=== PATIENT | female | born 1945 | race Caucasian/White ===

== ENCOUNTER 2024-08-15 08:19 | Emergency (ER) | payer OTHER, SELFPAY ==
--- NOTE | 2024-08-15 08:24 | ED_ITS ---
HPI - General Adult General Chief complaint: Dental/Oral Stated complaint: right side gum pain,swollen Time Seen by Provider: 08/15/24 08:50 Source: patient, RN notes reviewed and old records reviewed Mode of arrival: ambulatory Limitations: no limitations History of Present Illness HPI narrative: 79-year-old female presents to the [facility] with right gum pain and swelling. States the discomfort started on Monday. Has been swishing with salt water. Patient is a smoker Wears dentures. Onset (ago): day(s) (3) Related Data Home Medications ?Medication ?Instructions ?Recorded ?Confirmed ?Last Taken ?Type lisinopril 20 mg tablet 20 mg PO DAILY 08/15/24 08/15/24 Unknown History Allergies Allergy/AdvReac Type Severity Reaction Status Date / Time No Known Allergies Allergy Verified 08/15/24 08:57 Review of Systems Review of Systems: All systems reviewed & are unremarkable except as noted in HPI and below Constitutional: Constitutional: Reports no additional constitutional complaints ENT: Reports as per HPI Cardiovascular: Cardiovascular: Reports no additional cardiovascular complaints, Denies chest pain and Denies dyspnea Respiratory: Respiratory: Reports no additional respiratory complaints, Denies chest congestion, Denies cough and Denies dyspnea Musculoskeletal: Musculoskeletal: Reports no additional musculoskeletal complaints Integumentary/Breasts: Skin/Breast: Reports system reviewed and no additional complaints, except as docu PMFSH Comments At the time of my signature, I reviewed and agree with the nursing past medical, surgical, social, and family history. There is no relevant family history pertinent to the patient complaint. Exam Const: General: cooperative, healthy appearing, comfortable, no acute distress , well developed, alert and well nourished Nutritional Appearance: well nourished Orientation/consciousness: patient oriented x3 Limitations: no limitations HENMT: Head: normal to inspection Ears: hearing grossly normal bilaterally, external ears normal, TM's normal bilaterally, EAC's normal, mastoids normal and no periauricular adenopathy Mouth: Yes Normal oral and palatal mucosa present, Yes lip normal and Yes tongue normal Teeth and gingiva: gingiva abnormal (Right lower, edema, mild erythema.) tender (Right lower) and other (Dentures in place, removed lower denture to examine gums. ) Throat: posterior oropharynx normal, uvula midline and no uvular edema Other: Swelling noted to adjacent outer lower jaw area without cellulitic changes Eyes: General: appearance normal, both eyes and all related structures Alignment and Position: alignment normal Neck: Neck: normal visual inspection, full ROM, no lymphadenopathy and no meningeal signs Chest: Chest palpation & inspection: normal inspection of the chest Resp: Effort & Inspection: normal respiratory effort and able to speak in complete sentences Auscultation: clear to auscultation bilaterally, no crackles, no rales, no rhonchi and no wheezes Cardio: Rate: regular rate Skin: General skin exam: normal color and no rashes or lesions noted Neuro: General: patient oriented x3, gait normal, moves all extremities and no meningeal signs Cognition (Neuro): normal cognition Speech: normal speech Gait exam (Neuro): Normal gait present Extrem: General: normal to inspection, full ROM, capillary refill normal and normal gait Psych: Appearance: grossly normal and well kempt Mental Status: mental status grossly normal Speech and movement: Normal speech and movement present and Clear speech present Affect: normal affect Attitude: cooperative Course Course Level of Care: Express Care Visit Vital Signs Vital signs: Vital Signs Temperature 98.1 F 08/15/24 08:39 Pulse Rate 66 08/15/24 08:39 Respiratory Rate 16 08/15/24 08:39 Blood Pressure 159/68 H 08/15/24 08:39 Pulse Oximetry 97 08/15/24 08:39 Oxygen Delivery Room Air 08/15/24 08:39 Temperature 98.1 F 08/15/24 08:39 Pulse Rate 66 08/15/24 08:39 Respiratory Rate 16 08/15/24 08:39 Blood Pressure 159/68 H 08/15/24 08:39 Pulse Oximetry 97 08/15/24 08:39 Oxygen Delivery Room Air 08/15/24 08:39 Reviewed Medical Decision Making MDM Narrative Medical decision making narrative: Patient sitting comfortably in exam room. Nontoxic, vitals stable. Patient in no acute distress Patient presents for dental swelling, probable abscess to the gingival area, encourage patient to follow-up with dental provider. Patient is appropriate for outpatient treatment with close follow-up with antibiotics. Discharge instructions reviewed with patient, as well as provided in writing per nursing staff. The instructions also include specific and strict return/GO TO THE ER as well as f/u information. All questions have been answered, and the patient deny any further questions with discharge and discharge plan. Some parts of this dictation were generated by voice recognition software and may contain typographical and/or grammatical inaccuracies. Differential Diagnosis Differential Diagnosis: Gingival abscess, jaw infection Medical Records Medical records reviewed: Yes I reviewed the external patient's medical records. Vital Signs Vital Signs: Vital Signs Temperature 98.1 F 08/15/24 08:39 Pulse Rate 66 08/15/24 08:39 Respiratory Rate 16 08/15/24 08:39 Blood Pressure 159/68 H 08/15/24 08:39 Pulse Oximetry 97 08/15/24 08:39 Oxygen Delivery Room Air 08/15/24 08:39 Temperature 98.1 F 08/15/24 08:39 Pulse Rate 66 08/15/24 08:39 Respiratory Rate 16 08/15/24 08:39 Blood Pressure 159/68 H 08/15/24 08:39 Pulse Oximetry 97 08/15/24 08:39 Oxygen Delivery Room Air 08/15/24 08:39 Reviewed Lab Data Lab results reviewed: Yes I reviewed the patient's lab results. Labs: Reviewed Critical Care Time Critical Care Time Critical Care Time: No Discharge Plan Discharge Clinical Impression: Gingival abscess Patient Disposition: Home Condition: Stable Instructions: Antibiotic Form, Dental Abscess (ED) Additional Instructions: Finish the entire course of antibiotics & use the mouthwash. After every time you eat be sure to use salt water rinses. Apply ice to face to help with pain. Take Tylenol alternating with Motrin as needed for pain. You can alternate every 4 hours it is recommended you follow-up with a dental provider for further evaluation Follow up with a Primary Care Provider (PCP) about medical needs. A PCP can help keep you healthy by preventive medicine and screening. today your blood pressure was 159/68. Is recommended you follow-up with your primary care provider for further evaluation. For new or worsening symptoms please go directly to the nearest emergency room Patient Language: [place] Prescriptions: New amoxicillin 875 mg tablet 875 mg PO Q12H Qty: 20 0RF No Action lisinopril 20 mg tablet 20 mg PO DAILY Follow-up/Referrals: UNKNOWN,DOCTOR [Primary Care Provider] - Stand Alone Forms: Work/School Release IP Time of Disposition: 08:58
[2024-08-15 08:39] VITALS: BP 159/68; PULSE 66; RESP 16; TEMP 36.7; O2SAT 97
== END 2024-08-15 09:10 | disposition home or self-care (01) ==
PROVIDERS: Emergency Provider Nurse Practitioner
DX: K05.20 Aggressive periodontitis, unspecified (principal); I10 Essential (primary) hypertension
CPT/HCPCS: 99203; G0463